=== PATIENT | male | born 1935 | race Asian ===

== ENCOUNTER 2021-05-04 16:37 | Inpatient (IN) | payer OTHER, SELFPAY ==
[~2021-05-04] VITALS: Ht 172.7 cm; Wt 50.3 kg
[2021-05-04 17:00] VITALS: BP_SYST 134
[2021-05-04 18:38] LABS: BASOPHILS % (AUTO) 0.2 % (0.0-2.0); EOSINOPHILS % (AUTO) 0.3 % (0.0-4.0); HEMATOCRIT 41.2 % (36-54); HEMOGLOBIN 13.6 g/dL (14.0-18.0); LYMPHOCYTES % (AUTO) 10.8 % (20.5-51.5); MEAN CORPUSCULAR HEMOGLOBIN 30 pg (27-31); MEAN CORPUSCULAR HGB CONC 33 % (32-36); MEAN CORPUSCULAR VOLUME 90 fL (79.0-98.0); MONOCYTES # (AUTO) 0.6 K/uL (0.0-1.0); NEUTROPHILS # (AUTO) 7.7 K/uL (1.8-7.7); NEUTROPHILS % (AUTO) 82.7 % (40.0-70.0); PLATELET COUNT (AUTO) 183 K/uL (130-430); RED BLOOD CELL COUNT(AUTO) 4.58 MIL/uL (4.2-6.2); RED CELL DISTRIBUTION WIDTH 14.7 % (9.0-15.0); WHITE BLOOD COUNT (AUTO) 9.3 K/uL (4.8-10.8)
[2021-05-04 19:02] LABS: ANION GAP 6 (5-15); CALCIUM 9.5 mg/dL (8.4-11.0); CHLORIDE 101 mmol/L (98-107); CREATININE 1.09 mg/dL (0.55-1.30); GLUCOSE 207 mg/dL (70-99); INR 1.7 (0.80-1.20); POTASSIUM 4.5 mmol/L (3.5-5.1); PROTHROMBIN TIME 17.7 SECS (9.5-12.5); SODIUM SERUM 140 mmol/L (136-145); UREA NITROGEN, BLOOD 21 mg/dL (8-21)
[2021-05-04 19:08] LABS: ALANINE AMINOTRANSFERASE 67 U/L (12-78); ALBUMIN 3.9 g/dL (3.4-4.8); ASPARTATE AMINOTRANSFERASE 38 U/L (10-37); TOTAL BILIRUBIN 0.3 mg/dL (0.0-1.0)
[2021-05-04 19:11] LABS: ALCOHOL, BLOOD < 3 mg/dL (<10)
[2021-05-04] MEDS ORDERED: METF-518 PO (19:46)
[2021-05-04] MEDS ORDERED: INSU100V9 SQ (19:46)
[2021-05-04] MEDS ORDERED: SIMV40TA2 PO (19:46)
[2021-05-04] MEDS ORDERED: WARF-66 PO (19:46)
[2021-05-04] MEDS ORDERED: SOTA80TA PO (19:46)
[2021-05-04] MEDS ORDERED: EMPA10TA PO (19:46)
[2021-05-04 19:52] LABS: BARBITURATE, URINE NEGATIVE (NEG <=200); BENZODIAZEPINE, URINE NEGATIVE (NEG <=150); CANNABINOID, URINE NEGATIVE (NEG <=50); COCAINE, URINE NEGATIVE (NEG <=150); METHAMPHETAMINES SCREEN,URINE NEGATIVE (NEG <=500); OPIATE, URINE NEGATIVE (NEG <=100); PHENCYCLIDINE SCREEN,URINE NEGATIVE (NEG <=25); UR TRICYCLIC ANTIDEPRESSANTS NEGATIVE (NEG <=300); URINE AMPHETAMINE NEGATIVE (NEG <=500); URINE METHADONE NEGATIVE (NEG <=200); URINE OXYCODONE SCREEN NEGATIVE (NEG <=100); URINE PROPOXYPHENE SCREEN NEGATIVE (NEG <=300)
[2021-05-04 20:01] LABS: BILIRUBIN,URINE NEGATIVE (NEGATIVE); BLOOD, URINE NEGATIVE (NEGATIVE); CLARITY/URINE CLEAR (CLEAR); COLOR,URINE YELLOW (YELLOW); GLUCOSE,URINE 3+ (NEGATIVE); KETONES,URINE NEGATIVE (NEGATIVE); LEUKOCYTE ESTERASE ,URINE NEGATIVE (NEGATIVE); NITRITE, URINE NEGATIVE (NEGATIVE); PH,URINE 6.5 (5.0-8.0); PROTEIN URINE NEGATIVE (NEGATIVE); UROBILINOGEN,URINE 0.2 (0.2-1.0)
[2021-05-04 20:25] LABS: BACTERIA,URINE FEW /HPF (None Seen); RBC,URINE 0-3 /HPF (0-3)
[2021-05-04 20:26] LABS: MUCUS,URINE None Seen /LPF (None Seen)
[2021-05-04] MEDS ORDERED: DEXTROSE 50% JECT 50 ML DISP.SYRIN IVP PRN (20:30)
[2021-05-04] MEDS ORDERED: LORazepam 2 MG/ML VIAL IM ONE (20:45)
[2021-05-04] MEDS: SOTALOL HCL 80 MG TABLET PO SCH ×2 (21:00→22:21)
[2021-05-04] MEDS: SIMVASTATIN 40 MG TABLET PO SCH ×2 (21:00→22:20)
[2021-05-04 21:23] VITALS: BP_SYST 153
[2021-05-05 01:13] VITALS: BP_SYST 155
[2021-05-05 07:52] VITALS: BP_SYST 133
[2021-05-05] MEDS: SOTALOL HCL 80 MG TABLET PO SCH ×2 (09:35→20:44)
[2021-05-05] MEDS: INSULIN GLARGINE 100 UNITS/ML 10 ML VIAL SQ SCH (09:40)
[2021-05-05] MEDS: D5NS 1,000 ML IV SCH (11:49)
[2021-05-05 12:00] VITALS: BP_SYST 143
[2021-05-05 15:32] VITALS: BP_SYST 108
[2021-05-05] MEDS: WARFARIN SODIUM 2 MG TABLET PO SCH (15:42)
[2021-05-05 20:00] VITALS: BP_SYST 158
[2021-05-05] MEDS: SIMVASTATIN 40 MG TABLET PO SCH (20:44)
[2021-05-06] VITALS: BP_SYST 155
[2021-05-06] MEDS: D5NS 1,000 ML IV SCH ×2 (00:33→21:43)
[2021-05-06 07:47] LABS: INR 1.4 (0.80-1.20); PROTHROMBIN TIME 14.8 SECS (9.5-12.5)
[2021-05-06 08:00] VITALS: BP_SYST 165
[2021-05-06] MEDS: SOTALOL HCL 80 MG TABLET PO SCH ×2 (11:09→21:00)
[2021-05-06] MEDS: WARFARIN SODIUM 2 MG TABLET PO SCH (11:12)
[2021-05-06] MEDS: INSULIN GLARGINE 100 UNITS/ML 10 ML VIAL SQ SCH (11:25)
[2021-05-06 12:47] VITALS: BP_SYST 160
[2021-05-06 16:49] VITALS: BP_SYST 128
[2021-05-06 20:00] VITALS: BP_SYST 129
[2021-05-06] MEDS: SIMVASTATIN 40 MG TABLET PO SCH (21:00)
[2021-05-07 01:31] VITALS: BP_SYST 121
[2021-05-07] MEDS: INSULIN REGULAR, HUMAN 100 UNITS/ML, 10 ML VIAL (humuLIN R) SUBCUT PRN (06:07)
[2021-05-07 07:46] VITALS: BP_SYST 147
[2021-05-07] MEDS: SOTALOL HCL 80 MG TABLET PO SCH ×2 (08:43→21:39)
[2021-05-07] MEDS: WARFARIN SODIUM 2 MG TABLET PO SCH (08:44)
[2021-05-07] MEDS: INSULIN GLARGINE 100 UNITS/ML 10 ML VIAL SQ SCH (08:55)
[2021-05-07 12:00] VITALS: BP_SYST 127
[2021-05-07 16:00] VITALS: BP_SYST 144
[2021-05-07] MEDS: D5NS 1,000 ML IV SCH (17:39)
[2021-05-07 20:00] VITALS: BP_SYST 134
[2021-05-07 20:27] LABS: PROTHROMBIN TIME 20.6 SECS (9.5-12.5)
[2021-05-07] MEDS: SIMVASTATIN 40 MG TABLET PO SCH (21:39)
[2021-05-08 01:04] VITALS: BP_SYST 138
[2021-05-08] MEDS: D5NS 1,000 ML IV SCH (04:55)
[2021-05-08 07:08] LABS: BASOPHILS % (AUTO) 0.8 % (0.0-2.0); EOSINOPHILS # (AUTO) 0.1 K/uL (0.0-0.4); EOSINOPHILS % (AUTO) 1.4 % (0.0-4.0); HEMATOCRIT 39.2 % (36-54); LYMPHOCYTES # (AUTO) 1.4 K/uL (1.0-5.5); LYMPHOCYTES % (AUTO) 24.4 % (20.5-51.5); MEAN CORPUSCULAR HEMOGLOBIN 30 pg (27-31); MEAN CORPUSCULAR HGB CONC 33 % (32-36); MEAN CORPUSCULAR VOLUME 90 fL (79.0-98.0); MONOCYTES # (AUTO) 0.6 K/uL (0.0-1.0); NEUTROPHILS # (AUTO) 3.6 K/uL (1.8-7.7); NEUTROPHILS % (AUTO) 62.4 % (40.0-70.0); PLATELET COUNT (AUTO) 179 K/uL (130-430); RED BLOOD CELL COUNT(AUTO) 4.37 MIL/uL (4.2-6.2); RED CELL DISTRIBUTION WIDTH 14.9 % (9.0-15.0); WHITE BLOOD COUNT (AUTO) 5.7 K/uL (4.8-10.8)
[2021-05-08 07:48] LABS: ALANINE AMINOTRANSFERASE 32 U/L (12-78); ALBUMIN 3.2 g/dL (3.4-4.8); ANION GAP 8 (5-15); ASPARTATE AMINOTRANSFERASE 18 U/L (10-37); CALCIUM 8.9 mg/dL (8.4-11.0); CHLORIDE 103 mmol/L (98-107); CREATININE 0.56 mg/dL (0.55-1.30); GLUCOSE 104 mg/dL (70-99); SODIUM SERUM 139 mmol/L (136-145); TOTAL BILIRUBIN 0.3 mg/dL (0.0-1.0); UREA NITROGEN, BLOOD 10 mg/dL (8-21)
[2021-05-08 08:00] VITALS: BP_SYST 128
[2021-05-08 08:23] LABS: INR 2.5 (0.80-1.20); PROTHROMBIN TIME 25.1 SECS (9.5-12.5)
[2021-05-08] MEDS: WARFARIN SODIUM 2 MG TABLET PO SCH (08:33)
[2021-05-08] MEDS: SOTALOL HCL 80 MG TABLET PO SCH (09:00)
[2021-05-08] MEDS: INSULIN GLARGINE 100 UNITS/ML 10 ML VIAL SQ SCH (09:01)
[2021-05-08 11:36] VITALS: BP_SYST 117
[2021-05-08] MEDS: INSULIN REGULAR, HUMAN 100 UNITS/ML, 10 ML VIAL (humuLIN R) SUBCUT PRN (12:10)
[2021-05-08 13:05] VITALS: BP_SYST 135
[2021-05-08] MEDS ORDERED: WARFARIN SODIUM 3 MG TABLET PO SCH (18:00)
== END 2021-05-08 13:25 | DRG 65 ==
LOC: SED 16:37 → STU 20:39
PROVIDERS: ADMIT Internal Medicine Hospice and Palliative Medicine; ATTEND Internal Medicine Hospice and Palliative Medicine
DX: I63.9 Cerebral infarction, unspecified (principal); Z68.1 Body mass index [BMI] 19.9 or less, adult; G81.94 Hemiplegia, unspecified affecting left nondominant side; E44.1 Mild protein-calorie malnutrition; E78.00 Pure hypercholesterolemia, unspecified; E11.9 Type 2 diabetes mellitus without complications; F02.80 Dementia in other diseases classified elsewhere, unspecified severity, without behavioral disturbance, psychotic disturbance, mood disturbance, and anxiety; G30.9 Alzheimer's disease, unspecified; I10 Essential (primary) hypertension; I48.91 Unspecified atrial fibrillation; R53.81 Other malaise; Z20.822 Contact with and (suspected) exposure to COVID-19; Z79.4 Long term (current) use of insulin; Z79.01 Long term (current) use of anticoagulants; Z79.899 Other long term (current) drug therapy; Z90.49 Acquired absence of other specified parts of digestive tract
CPT/HCPCS: 36415; 70450-TC; 70551; 71045; 76376; 80053; 80307; 81000; 82962; 83880; 84484; 85025; 85610-TC; 85730-TC; 86886; 86900; 86901; 87081; 92610-GN; 93005; 93880; 97110-GP; 97116-GP; 97530-GP; 99285; G0378; G0482; J1815; J2060